=== PATIENT | male | born 1935 | race Caucasian/White ===

== ENCOUNTER 2021-03-26 03:01 | Inpatient (IN) | payer MEDICARE, OTHER, SELFPAY ==
[2021-03-26] VITALS (60 sets, daily range): BP systolic 102–184; BP diastolic 73–153; PULSE 53–119; RESP 10–34; TEMP 36.4–36.8; O2SAT 91–99; BMI 29.9
--- NOTE | 2021-03-26 03:03 | W.ED.CHESTPA ---
HPI - Chest Pain General: Chief Complaint: Chest Pain Stated Complaint: cp Time Seen by Provider: 03/26/21 03:03 Limitations: altered mental status (Dementia) History of Present Illness: HPI narrative: Mr. Lamas is an 85-year-old gentleman with history of hypertension, CAD, dementia and history of prior PCI who presents emergency department due to chest pain. The patient does not provide significant meaningful history and nearly all history is presented from his . Reportedly he woke up about 4 hours prior to arrival complaining of chest discomfort. The exact location, quality, exacerbating, provoking, alleviating, associated symptoms are unclear. History limited by mental status. Patient's denies recent other changes in health or frequent episodes of chest pain Review of Systems General: Reports: ROS unobtainable due to mental status [facility] ED PFSH: Medical History CAD (coronary artery disease) Hypertension Physical Exam Narrative: EXAM NARRATIVE: GENERAL/CONSTITUTIONAL -chronically ill-appearing. No acute distress. Eyes - PERRL, no conjunctival injection ENMT - Atraumatic external nose and ears. Moist mucous membranes NECK - supple. trachea midline CARDIOVASCULAR - regular rate and rhythm. Cap refill normal RESPIRATORY -clear to auscultation bilaterally. No retractions or accessory muscle use. ABDOMEN/GI - Nontender/Nondistended. MSK - Extremities without obvious deformity or tenderness to palpation SKIN - Warm, Dry NEURO - alert and disoriented. Moves all extremities equally. PSYCH -impaired cognition and memory Course ED course: - Patient was seen and evaluated by me at bedside - Patient placed on cardiac monitors, IV access obtained - Initial evaluation notable for limited history due to mental status. - Initial EKG reviewed. There are concerning abnormalities. Left bundle branch block present which limits interpretation, most concerning is lead V2 and I am concerned that this may meet scar Boso criteria however I am unable to completely determine where the bulk of QRS complex deflection is to say whether elevation is definitively concordant. I immediately had the unit aide tech contact interventional cardiology and after his review of the EKG he recommended repeat EKG and to let them know when troponin is back -Troponin elevated at 211, Repeat EKG completed as requested and sent to mogul operator. Discussed on telephone, STEMI activated at this time. - Labs notable for leukocytosis of unclear etiology, may be secondary to stress reaction. - Imaging notable for minimal patchy opacities of unclear significance - Patient taken to Supervisor Reinforced Steel Placing. - Patient was admitted without further deterioration or significant events. Vital Signs: Vital signs: Vital Signs Temperature 98.2 F 03/26/21 20:51 Pulse Rate 76 03/26/21 22:00 Respiratory Rate 23 H 03/26/21 22:00 Blood Pressure 184/153 03/26/21 22:00 Pulse Oximetry 94 03/26/21 22:00 MDM - Chest Pain Medical Records: Attestation: I reviewed the patient's medical records. Lab Data: Attestation: I reviewed the patient's lab results. Labs: Lab Results 03/26/21 03/26/21 03/26/21 03:15 03:15 03:15 WBC 13.3 10^3/uL H 10 ^3/uL (4.0-10.0) RBC 4.54 10^6/uL 10^6 /uL (4.1-5.3) Hgb 14.1 g/dL g/dL (11.7-16.6) Hct 41.9 % L % (42.0-52.0) MCV 92.3 fl fl (80-94) MCH 31.1 pg pg (28.0-34.0) MCHC 33.7 g/dL g/dL (30.0-36.0) RDW 13.2 % % (12.1-15.1) Plt Count 279 10^3/cmm 10^3 /cmm (130-400) MPV 9.0 fL fL (7.4-10.4) Neut % (Auto) 60.1 % % Lymph % (Auto) 26.5 % % [place] % (Auto) 7.6 % % Eos % (Auto) 4.7 % % Baso % (Auto) 0.7 % % Neut # (Auto) 8.03 10^3/uL H 10 ^3/uL (1.8-7.7) Lymph # (Auto) 3.5 10^3/uL 10^3/ uL (0.8-4.8) [place] # (Auto) 1.0 10^3/uL H 10^ 3/uL (0.2-0.9) Eos # (Auto) 0.6 10^3/uL 10^3/ uL (0.0-0.8) Baso # (Auto) 0.1 10^3/uL 10^3/ uL (0.0-0.1) Nucleated RBC % (a uto) 0 % % Nucleated RBCs # 0.0 /100WBC /100W BC Sodium 136 mmol/L mmol/L (136-145) Potassium 3.8 mmol/L mmol/L (3.5-5.1) Chloride 100 mmol/L mmol/L (98-107) Carbon Dioxide 23 mmol/L mmol/L (22-29) Anion Gap 16.8 (5-19) BUN 20 mg/dL mg/dL (8-23) Creatinine 1.2 mg/dL mg/dL (0.7-1.2) GFR Calculation Not Reportable Glucose 101 mg/dL mg/dL (65-115) Calculated Osmolal ity 285 mOsm/kg mOsm/ kg (285-295) Calcium 8.9 mg/dL mg/dL (8.5-10.5) Total Bilirubin 0.3 mg/dL mg/dL (0.15-1.2) AST 31 U/L U/L (0-40) ALT 19 U/L U/L (0-41) Alkaline Phosphata se 75 IU/L IU/L (40-130) Troponin T Baselin e Cancelled NT-Pro-B Natriuret Pep 151 pg/mL pg/mL (0-450) Total Protein 6.8 g/dL g/dL (6.6-8.7) Albumin 4.0 g/dL g/dL (3.5-5.2) Globulin 2.8 g/dL g/dL (1.3-4.6) Lipase 64 U/L H U/L (13-60) EKG Data^: EKG 1: Attestation: I personally reviewed and interpreted this EKG as follows: EKG interpretation date: 03/26/21 EKG interpretation time: 03:10 Interpretation: Twelve-lead EKG shows a regular rhythm rhythm at a rate of 71. SC interval 172, QRS duration 143, QTc 443 Left axis deviation Interpretation: Sinus rhythm. Left bundle branch block. See discussion regarding sgarbossa criteria application and ED course. Sent to ortho/prosthetic aide for review EKG 2: Attestation: I personally reviewed and interpreted this EKG as follows: EKG interpretation date: 03/26/21 EKG interpretation time: 03:58 Interpretation: Twelve-lead EKG shows a regular rhythm at a rate of 68 SC interval 104, QRS duration 150, QTc 436 Left axis deviation Interpretation: Sinus rhythm. Left bundle branch block. Similar to prior Discharge Plan Discharge Patient Disposition: Admitted As Inpatient Admit Provider: Hilario Santos Coding Level of Care Code ED Tufting Supervisor for Pelon Yin
--- NOTE | 2021-03-26 03:14 | XRR_ITS ---
PROCEDURE INFORMATION: Exam: XR Chest Exam date and time: 03/26/2021 3:14 AM Age: 85 years old Clinical indication: Chest pressure; Prior surgery; Surgery type: Cardiac stent; Patient HX: C/O chest pain. Possible st elevation on ekg. TECHNIQUE: Imaging protocol: XR of the chest. Views: 1 view. COMPARISON: CR Chest 1 [place] [id number] 08/26/2018 2:38 PM FINDINGS: Lungs: Minimal patchy opacities noted at the left lung base which may be seen with pneumonia or atelectasis. Pleural spaces: Unremarkable. No pleural effusion. No pneumothorax. Heart/Mediastinum: No cardiomegaly. Bones/joints: No acute fracture. XR/XR chest 1V portable [id number] IMPRESSION: Minimal patchy opacities noted at the left lung base which may be seen with pneumonia or atelectasis. Radiation Dose CTDIVOL = (mGy): DLP = (mGy-cm)
--- NOTE | 2021-03-26 03:14 | ECG_ITS ---
[facility] Test Date: 2021-03-26 Pat Name: Chinmay Lamas Department: Room: ICU11 Gender: Male Mononitrotoluene Operator: : 1935 Requested By: Jose Dallas Order Number: [id number] Hakeem MD: Sangeeta Naranjo M.D. Measurements Intervals [place] Rate: 71 P: 7 VT: 172 QRS: -71 QRSD: 143 T: 87 QT: 407 QTc: 443 Interpretive Statements SINUS RHYTHM INTRAVENTRICULAR CONDUCTION DELAY [130+ ms QRS DURATION] SEPTAL MYOCARDIAL INFARCTION , POSSIBLY ACUTE [40+ ms Q WAVE IN V1/V2] ACUTE VA Compared to ECG 08/26/2018 13:00:27 Myocardial infarct finding now present Electronically Signed On 03-27-2021 5:45:56 CDT by Sangeeta Naranjo M.D. [id number] f
[2021-03-26 03:20] LABS: Basophils # 0.1 10^3/uL (0.0-0.1); Basophils % 0.7 %; Eosinophils # 0.6 10^3/uL (0.0-0.8); Eosinophils % 4.7 %; Hematocrit 41.9 % (42.0-52.0); Hemoglobin 14.1 g/dL (11.7-16.6); Lymphocytes # 3.5 10^3/uL (0.8-4.8); Lymphocytes % 26.5 %; Mean Corpuscular HGB Conc 33.7 g/dL (30.0-36.0); Mean Corpuscular Hemoglobin 31.1 pg (28.0-34.0); Mean Corpuscular Volume 92.3 fl (80-94); Monocytes % 7.6 %; Neutrophils # 8.03 10^3/uL (1.8-7.7); Neutrophils % 60.1 %; Nucleated Red Blood Cells % 0 %; Platelet Count 279 10^3/cmm (130-400); Red Blood Count 4.54 10^6/uL (4.1-5.3); Red Cell Distribution Width 13.2 % (12.1-15.1); White Blood Count 13.3 10^3/uL (4.0-10.0)
[2021-03-26] MEDS: aspirin 81 mg Chew Tablet 324 MG PO (03:25)
[2021-03-26 03:45] LABS: Alanine Aminotransferase 19 U/L (0-41); Alkaline Phosphatase 75 IU/L (40-130); Anion Gap 16.8 (5-19); Aspartate Amino Transferase 31 U/L (0-40); Blood Urea Nitrogen 20 mg/dL (8-23); Calcium 8.9 mg/dL (8.5-10.5); Carbon Dioxide 23 mmol/L (22-29); Chloride 100 mmol/L (98-107); Globulin 2.8 g/dL (1.3-4.6); Glucose 101 mg/dL (65-115); Lipase 64 U/L (13-60); NT Pro B Type Natriuretic Pept 151 pg/mL (0-450); Osmolality Calculated 285 mOsm/kg (285-295); Potassium 3.8 mmol/L (3.5-5.1); Sodium 136 mmol/L (136-145); Total Bilirubin 0.3 mg/dL (0.15-1.2); Total Protein 6.8 g/dL (6.6-8.7)
--- NOTE | 2021-03-26 03:46 | ECG_ITS ---
[facility] Test Date: 2021-03-26 Pat Name: Chinmay Lamas Department: Room: Gender: Male Automotive Fleet Supervisor: : 1935 Requested By: Jose Dallas Order Number: [id number] Hakeem MD: Sangeeta Naranjo M.D. Measurements Intervals [place] Rate: 68 P: 210 DC: 104 QRS: -69 QRSD: 150 T: 86 QT: 409 QTc: 436 Interpretive Statements ECTOPIC ATRIAL RHYTHM WITH SHORT DC INTERVAL INTRAVENTRICULAR CONDUCTION DELAY [130+ ms QRS DURATION] SEPTAL MYOCARDIAL INFARCTION , POSSIBLY ACUTE [40+ ms Q WAVE IN V1/V2] ACUTE NE Compared to ECG 08/26/2018 13:00:27 Ectopic atrial rhythm now present Short DC interval now present Myocardial infarct finding now present Sinus rhythm no longer present Electronically Signed On 03-27-2021 5:45:35 CDT by Sangeeta Naranjo M.D. [id number]
[2021-03-26] MEDS: sodium chloride 0.9% 500 ML 999 ML IV (04:17)
[2021-03-26] MEDS: sodium chloride 0.9% 1,000 ML 999 ML IV (04:17)
[2021-03-26] MEDS: heparin 5,000 unit/mL INJ 1 mL 4000 UNIT IVP (04:20)
[2021-03-26] MEDS: ticagrelor 90 mg Tablet 180 MG PO (04:35)
--- NOTE | 2021-03-26 04:35 | XACV_ITS ---
Gender: Male : 1935 Exam Priority: Routine Procedure(s): Procedure Description: Diagnostic procedure Procedure Description: Left Heart Catheterization Procedure Description: Balloon angioplasty Diagnostic Cath Status: Emergency Diagnostic Findings * Left Main has 30% stenosis. * Circumflex has diffuse disease. It gives rise to an OM branch that has severe 90% stenosis. * INDICATION: 85 Year old man with severe dementia who had been having on and off atypical chest pain symptoms for 3-4 days was found to have ST elevations in leads V 1 and V 2. Secondary to his dementia, he could not communicate any clear symptoms.. * Mid Left Anterior Descending: total occlusion, MARY ANN: 0 flow. * Proximal Right Coronary Artery: moderate 50% stenosis, MARY ANN: 3 flow. * Distal Right Coronary Artery: obstructive 60% stenosis, MARY ANN: 3 flow. * First Obtuse Marginal Branch Segment: severe 90% stenosis, MARY ANN: 3 flow. * Coronary angiography shows right dominance. PCI Status: Emergency PCI Indication: STEMI - Stable (> 12 hrs Sx) Interventional Findings * Procedure detail: We engaged left main artery with XB 4.0 guide catheter. A 0.014 run-through guidewire was used to cross the mid LAD stenosis. It was a heavily calcified and small caliber distal vessel. 2.5 x 8 mm semicompliant balloon was used to perform balloon angioplasty. This restored blood flow temporarily. It did not appear to be acutely occluded vessel and acted more like subacute/chronic occlusion. Blood flow was lost again. Given patient's dementia because of which patient was very agitated during the procedure and he could not follow any commands, very small size of the distal artery,severe calcification and lack of patient symptoms along with hemodynamic stability, we decided to medically treat him. Final angiogram also revealed possible wire dissection.. * Mid Left Anterior Descendin% stenosis treated with a AB TREK 2.50X8 RX BALLOON. 0% residual stenosis, MARY ANN: 3 flow. Conclusions 1. Severe multivessel coronary artery disease. 2. Totally occluded mid LAD status post balloon angioplasty. Temporary catholic of flow however unsuccessful attempt at revascularization. Small sized, heavily calcified distal LAD artery. Recommendations * Patient was very agitated during the procedure. He does not follow any commands secondary to his dementia. Could not lay still. As he was chest pain-free, hemodynamically stable, his artery was not amenable to revascularization and delayed presentation of CA, we decided to medically treat him. Further attempts at revascularization were aborted. * Aspirin and Plavix for at least 1 year. * Transfer to ICU. * Order echocardiogram. * High intensity statin therapy and beta-declan. Interventional RX Recommendation: medical therapy and/or counseling Diagnostic RX Recommendation: PCI w/o planned CABG Anticoagulation: Heparin Clinical Evaluation EBL: 5mL-10mL Procedural Details Admit Source: Emergency department. Pre-Procedure Time Out. Identified patient by full name and date of as verbalized by the patient/guarantor. Does the consent match the physician's order: N/A Emergent. Accurate & Complete Informed Consent: N/A Emergent. Inpatient/Outpatient History & Physical on Chart: N/A Emergent. If H&P is completed, is and addenduem needed: N/A Emergent; If yes, is the addendum complete: N/A Emergent. Pre-op teaching completed and patient verbalized understanding. The risks, benefits, and alternatives of sedation and/or procedure were discussed by physician. The patient agrees to continue. Procedure started. Correct patient, site and procedure confirmed by cath team. Current diagnosis: STEMI. PERRLA. Strong, equal hand machine tool technician instructor bilaterally. Lungs clear x 5 lobes. IV Site on Arrival: 18 gauge in the right anticubital. IV Site on Arrival: 18 gauge in the left anticubital. IV Fluids: 0.9% NaCl at KVO. 1 liter infused prior to blender laborer. Oxygen started at 2liters/min via nasal canula. bilateral groins was prepped with chloroprep then draped in the usual sterile fashion. Physician notified. Physician arrived. Physician scrubbed in. Immediate Pre-Procedure Time Out. Correct Patient: N/A Emergent; Correct Procedure: N/A Emergent; Correct Site: N/A Emergent; Correct Patient Position: N/A Emergent; Correct Supplies: N/A Emergent; Dried Flammable Prep: N/A Emergent; Blood Products Available: N/A Emergent;. Lidocaine 1% infiltrated to the right groin. Arterial access obtained. Arterial access obtained with micropuncture set. A 5 chinese JL4 catheter in over wire. Baseline sample Acquired. HR: 72 BPM. Multiple views taken of left coronary artery. Catheter out. 6 chinese XB 3.5 guide catheter was inserted over the wire. Guide catheter removed. 6 chinese XB 4 guide catheter was inserted over the wire. Runthrough guidewire was advanced through the guide catheter to lesion in the mid LAD. Balloon inserted to lesion in the mid LAD. Inflation number : 1 A AB TREK 2.50X8 RX BALLOON was prepped and advanced across the Mid LAD , then inflated to 8 DAWN for 0:20 seconds. Inflation number: 2 The AB TREK 2.50X8 RX BALLOON was reinflated across the Mid LAD, to 8 DAWN for 0:10 seconds. Results checked. Balloon out. Wire out. Guide catheter out. 6 chinese JR 4 guide catheter was inserted over the wire. Guide catheter out. 6 chinese XB 4 guide catheter was inserted over the wire. Auditing Specialist guide wire inserted into the MID LAD. Auditing Specialist guide wire removed. 6 chinese JL 4.5 guide catheter was inserted over the wire. Auditing Specialist 50 guide wire reinserted. guide wire removed. 6 chinese XB 4 guide catheter was inserted over the wire. Auditing Specialist 50 reinserted into mid LAD. Inflation number: 4 The AB TREK 2.50X8 RX BALLOON was reinflated across the Mid LAD, to 10 DAWN for 0:19 seconds. Balloon out. Results checked. Wire out. Guide catheter out. Groin shot through the sheath. Angioseal placed without complications. No signs or symptoms of hematoma noted. Sterile dressing applied per usual sterile fashion. Lidocaine 1% infiltrated to the right groin. A Angio-Seal VIP ([place]) was successful obtaining hemostatsis at the Right Femoral artery insertion site. Fluoro: 25:06. Physician scrubbed out. Family updated. Total IV fluids: 100 mL. Complications: N/A. Estimated blood loss: 5mL-10mL. Procedure completed. Medication's Wasted: Lidocaine 1% = 15 mL. Medication's Wasted: Heparin = 4000 units. Medication's Wasted: Versed = 1 mL. Medication's Wasted: Fentanyl = 25 mcg. Post-op diagnosis: NSTEMI. Patient transferred by bed to ICU. [facility] Clinical Fraility Score: 8: Very Severely Frail. Manager Research Indications: ACS > 24 hours. Chest Pain Symptom Assessment: Atypical Angina. Cardiovascular Instability: No. Vital chart was stopped. Access Site Site: Right Femoral artery Sheath Size: 6 Fr Hemostasis Method: Angio-Seal VIP (St. Julio) Hemostasis Success: Successful Procedure Medications Start: 4:57 AM Stop: 4:57 AM Medication: Versed Amount: 1 mg Route: I.V. Start: 4:57 AM Stop: 4:57 AM Medication: Fentanyl Amount: 25 mcg Route: I.V. Start: 5:02 AM Stop: 5:02 AM Medication: Versed Amount: 1 mg Route: I.V. Start: 5:11 AM Stop: 5:11 AM Medication: Heparin Amount: 6000 units Route: I.V. Start: 5:21 AM Stop: 5:21 AM Medication: Versed Amount: 1 mg Route: I.V. Start: 5:36 AM Stop: 5:36 AM Medication: Fentanyl Amount: 25 mcg Route: I.V. Start: 5:38 AM Stop: 5:38 AM Medication: Versed Amount: 1 mg Route: I.V. Start: 5:48 AM Stop: 5:48 AM Medication: Heparin Amount: 06785 units Route: I.V. Start: 5:53 AM Stop: 5:53 AM Medication: Versed Amount: 1 mg Route: I.V. Start: 5:53 AM Stop: 5:53 AM Medication: Fentanyl Amount: 25 mcg Route: I.V. I, the attending physician, have reviewed and verified all procedure medications. Yes, all medications given per verbal order History/Risk Factors Hypertension: No Dyslipidemia: No Peripheral Arterial Disease (PAD): No Myocardial Infarction (CA): No Obesity: No Renal Disease: No Prior Interventions PCI: No CABG: No Valve Surgery: No Report Signatures Finalized by Hilario Santos MD on 04/09/2021 05:57 PM
--- NOTE | 2021-03-26 04:40 | P.HP_ITS ---
Providers/Chief Complaint Admitting Physician: Hilario Santos MD Chief Complaint: cp History of Present Illness Chinmay Lamas is a 85 year old male with PMH of dementia, hypertension and coronary artery disease with prior PCIs done in the past presented with on and off heart burn and chest pressure has been going on for the last 3 to 4 days. Worsened at about 7 PM yesterday. He gives very limited history secondary to dementia and denies chest pain but his says that he generally does not have any complaints but last few days have been different. EKG has interventricular conduction delay with borderline ST elevations in leads V 1 and V2. Said chest pain is almost resolved but still feels it on and off. Repeat ekg showed persist ent findings and initial troponin came back at 211. laborer tan house was activated. Coronary angiogram showed occluded mid LAD with heavily calcified and diffusely diseased distal vessel. Balloon angioplasty restored blood flow temporarily but it was occluded again. Reattmept at revascularization was unsuccessful with possible dissection of the vessel Review of Systems General: Reports: ROS unobtainable due to mental status Medications/Allergies Allergies Allergy/AdvReac Type Severity Reaction Status Date / Time clopidogrel [From Plavix] Allergy ALGY-Rash Verified 03/26/21 04:09 PFSH Acute PFSH: Medical History CAD (coronary artery disease) Hypertension Vitals/I&O/Wt Last Vital Signs Temp 97.9 F 03/26/21 03:08 Pulse 71 03/26/21 03:08 Resp 18 03/26/21 03:08 BP 162/87 03/26/21 03:08 Pulse Ox 95 03/26/21 03:08 Weight last 48 hrs Weight 180 lb Physical Exam Narrative: EXAM NARRATIVE: GENERAL: Patient is drowsy and not oriented NECK: No jugular vein distension. [] HEENT: No cyanosis. No icterus. No pallor. [] HEART: Regular S1 and S2. No murmur, rub or gallop. [] LUNGS: Clear to auscultate bilaterally. [] ABDOMEN:Soft CENTRAL NERVOUS SYSTEM: Grossly nonfocal. [] EXTREMITIES: Lower extremities with 1+ edema bilaterally. Pulses palpable in the lower extremities, both dorsalis pedis and posterior tibial. [] Data : 03/26/21 03:15 03/26/21 03:15 A&P Assessment and plan (1) Hypertension: Status: Acute (2) Dementia: Status: Acute (3) CAD (coronary artery disease): Status: Acute (4) NSTEMI (non-ST elevated myocardial infarction): Status: Acute Patient delayed presentation of [place] with resolution of chest pain at time of my evaluation in the ER. He had been having symptoms for the last 3-4 days but could not communicate to family. Coronary angiogram demonstrated occluded mid LAD. Temporary zoroastrianism of blood flow was obtained after balloon angioplasty however distal vessel is small in size and severely calcified. PCI could not be performed. Possible dissection of the vessel distally. Given patient's hemodynamic stability and resolution of chest pain, we decided to treat medically. Continue aspirin and Brilinta Start atorvastatin Order echocardiogram Transfer to ICU for now. If he develops chest discomfort, we will start on nitro drip. Attestations Medical Necessity Statement*: Care expected to cross 2 midnights. Patient presented with chest pain and EKG changes concerning for ischemia. Getting medi marcus therapy for [place]. Coding Level of Care Code Acute School Supervisor for [facility] Fwd Diagnoses Hypertension I10 Dementia F03.90 CAD (coronary artery disease) I25.10 NSTEMI (non-ST elevated myocardial infarction) I21.4
--- NOTE | 2021-03-26 06:26 | USCV_ITS ---
[place] Age: 85 Gender: M : 1935 Exam Date: 03/26/2021 11:38 Ordering Phys: Hilario Santos M.D ([email or web address]) Technologist: [place]am [place] [facility] [place]ication: mi BP: 166 / 93 HR: 56 Rhythm: Sinus Technical Quality: Technically difficult study MEASUREMENTS (Male / Female) Normal Values 2D ECHO LVOT Diameter 2.0 cm LV Ejection Fraction MOD 2C 46.7 % LV Ejection Fraction 2C AL 43.9 % LA Diameter 3.6 cm LA Width 4.6 cm LA Height 5.0 cm RA Width 3.9 cm RA Height 3.1 cm DOPPLER AV Peak Velocity 125.0 cm/s LVOT Peak Velocity 86.0 cm/s AV Area Cont Eq vti 2.9 cm squared AV Area Cont Eq pk 2.2 cm squared MV Area PHT 5.0 cm squared Mitral E to A Ratio 0.5 MV E' Velocity 27.0 cm/s Mitral E to MV E' Ratio 7.2 Mitral E to LV E' Lateral Ratio 5.5 Mitral E to LV E' Septal Ratio 10.3 TR Peak Velocity 159.0 cm/s TR Peak Gradient 10.1 mmHg Right Atrial Pressure 3.0 mmHg Pulmonary Artery Systolic Pressu 13.1 mmHg FINDINGS Left Ventricle Technically very difficult study. Grossly LV systolic function is moderate to severely reduced with EF of 30 to 35%. Regional wall motion abnormalities not accurately assessed however apical wall appears to be akinetic. Grade 1 diastolic dysfunction is seen. Right Ventricle The right ventricle is normal in size and function. Right Atrium Grossly normal Left Atrium Grossly normal Mitral Valve Not well-visualized Aortic Valve Not well-visualized Tricuspid Valve Not well-visualized Pulmonic Valve Not visualized Pericardium Grossly normal Aorta Not well-visualized CONCLUSIONS This is technically limited quality echocardiogram because of poor ultrasonic windows. Grossly LV systolic function is moderate to severely reduced with EF of 30 to 35%. Regional wall motion abnormalities cannot be accurately assessed because of poor quality images however apical wall appears to be akinetic. Grade 1 diastolic dysfunction is seen. Valvular structures are not well visualized No comparison studies are seen Hilario Santos MD (Electronically Signed) Final Date: 28 March 2021 21:47 S
[2021-03-26] MEDS: nitroglycerin drip 50 MG/250 ML PREMIX IV (08:06)
[2021-03-26] MEDS: metoprolol tartrate 25 mg Tablet PO ×2 (08:24→20:07)
[2021-03-26] MEDS: amlodipine 5 mg Tablet PO (09:13)
--- NOTE | 2021-03-26 09:13 | PC.CHAP ---
Pastoral Care Encounter/Spiritual Assessment Type of Contact [] Declined content writer visit [] Patient/Family/Request visit [] Outpatient visit [] Follow-up visit [] Physician referral [] Code/Alert [x] Routine visit [] Staff referral [] Actively dying [] Patient sleeping [x] Family support [] [] Out of room [] Palliative care [] [x] Receiving care in room [] Pre-surgical visit [] Trauma [] Long length of stay [x] ICU visit [x] Other: staff having difficult time getting patient to relax Relational/Emotional Strength [] Patient feels connected with others/family/visitors/staff [] Distress [] Loneliness/isolation [] Abandonment Spirituality of Patient [] Person of Cece [] Attends Confucianism of their Cece [] Believes in Prayer [] Reads Bible or Worship materials [] There are Spiritual issues to be addressed Gravel Screener Interventions [x] Prayer [] Active listening [] Non-anxious presence [] Spiritual/emotional support [] Crisis/trauma care [] Spiritual counseling [] Bereavement support [] Provided bereavement packet [] Provided Bible/devotional materials [] Provided toy/stuffed animal, coloring book to patient or family member [] Provided Communion [] Anointing/[place] [] Salvation [x] Completed spiritual assessment [] Other: Impact on Illness or Injury [] Angry [] Fearful [] Anxious [] Often cries [] Exhaustion [] Unable to work [] Unable to attend faith [] Unable to walk/stand [] Unable to read [] Unable to drive [] Unable to eat/drink [] Unable to sleep [] Unable to be with family [] Patient intubated [] Other: Summary Time spent with patient
--- NOTE | 2021-03-26 09:14 | ECG_ITS ---
[facility] Test Date: 2021-03-26 Pat Name: Chinmay Lamas Department: Room: ICU11 Gender: Male Sole Trimmer: : 1935 Requested By: Jose Dallas Order Number: [id number] Hakeem MD: Sangeeta Naranjo M.D. Measurements Intervals [place] Rate: 54 P: 17 OK: 181 QRS: -71 QRSD: 137 T: 90 QT: 476 QTc: 452 Interpretive Statements SINUS BRADYCARDIA INTRAVENTRICULAR CONDUCTION DELAY [130+ ms QRS DURATION] SEPTAL MYOCARDIAL INFARCTION , PROBABLY RECENT ACUTE MO Compared to ECG 03/26/2021 03:57:21 Ectopic atrial rhythm no longer present Short OK interval no longer present Myocardial infarct finding still present Electronically Signed On 03-27-2021 5:51:17 CDT by Sangeeta Naranjo M.D. [id number]
--- NOTE | 2021-03-26 09:36 | PC.NURSE ---
Patient was admitted to ICU this AM. Family at bedside and answered all questions. Right groin dressing dry and intact. No hematoma noted. Patient is yelling out at, hitting and pinching staff. Leg brace was applied to right leg in attempt to keep patient from bending knee due to increased infusion. at bedside aware and agreed to intervention.
[2021-03-26] MEDS: ALPRAZolam 0.5 mg Tablet 0.25 MG PO ×2 (12:34→17:41)
--- NOTE | 2021-03-26 15:04 | PC.NURSE ---
Patient continues to pull at wires and leads making it difficult to obtain vitals correctly. PRN medication given and at bedside.
[2021-03-26 20:01] LABS: Basophils # 0.1 10^3/uL (0.0-0.1); Basophils % 0.3 %; Eosinophils # 0.1 10^3/uL (0.0-0.8); Eosinophils % 0.4 %; Hematocrit 42.1 % (42.0-52.0); Hemoglobin 14.3 g/dL (11.7-16.6); Lymphocytes # 1.8 10^3/uL (0.8-4.8); Lymphocytes % 10.5 %; Mean Corpuscular Hemoglobin 31.2 pg (28.0-34.0); Mean Corpuscular Volume 91.7 fl (80-94); Mean Platelet Volume 9.4 fL (7.4-10.4); Monocytes # 1.5 10^3/uL (0.2-0.9); Monocytes % 8.9 %; Neutrophils # 13.33 10^3/uL (1.8-7.7); Neutrophils % 79.4 %; Nucleated Red Blood Cells % 0 %; Platelet Count 293 10^3/cmm (130-400); Red Blood Count 4.59 10^6/uL (4.1-5.3); Red Cell Distribution Width 13.2 % (12.1-15.1); White Blood Count 16.8 10^3/uL (4.0-10.0)
[2021-03-26] MEDS: acetaminophen 325 mg Tablet 650 MG PO (20:07)
[2021-03-26] MEDS: temazepam 15 mg Capsule PO (20:07)
--- NOTE | 2021-03-26 21:12 | PC.NURSE ---
Bruising noted to right groin area. aware
[2021-03-26 23:05] LABS: Glucose Point of Care 119 mg/dL (70-110)
--- NOTE | 2021-03-26 23:25 | PM.MISC ---
Miscellaneous Note Purpose of Documentation: Brief note Note: 85-year-old man with severe dementia and limited mobility had presented this morning with 3 to 4 days of symptoms of heartburn. EKG showed evolving changes with borderline ST elevation noted in V1 and V2. It was consistent with delayed presentation of PR. After discussion with family it was decided to perform a coronary angiogram. He had mid LAD occlusion. It was subacute. Heavily calcified and small in size vessel distally. Flow was restored temporarily with balloon angioplasty however reocclusion occurred. Further attempts at revascularization were not successful. Given his overall clinical and hemodynamic stability, no complaints of chest pain, no further ST changes and his inability to lay and agitation during the procedure because of dementia we decided to medically manage him. He appeared to have completed infarction given lack of active chest pain and duration of his symptoms. It was discussed with the family who agreed. He stayed stable through the day clinically. Not cooperative with getting vitals because of his significant dementia. Received a call that he went into ventricular tachycardia tonight at 1048 PM. Likely infarct related ventricular tachycardia. After 20 minutes of resuscitation attempt, family decided to stop further CPR.
--- NOTE | 2021-03-26 23:41 | PC.NURSE ---
Addendum entered by Thalia Springer RN 03/26/21 23:58: Agree with note written by SN Jeison Original Note: 2215 - Entered patient room. Patient was restless needing to void. Assisted patient to use urinal and patient became increasingly agitated. woke up to assist patient, agonal breathing noted, patient became bradycardic on spring coverer, blood pressure elevated. 2241 - Asystole noted on spring coverer with agonal respirations, CPR started and code called. See code sheet for further detailed code documentation.
--- NOTE | 2021-03-26 23:42 | P.DES_ITS ---
Discharge Providers DDS Date of Admission: 03/26/21 06:20 Date Summary Completed: 03/26/21 Attending Provider at Admission: Hilario Santos M.D Time of : 22:59 Attending Provider at Discharge: Hilario Santos M.D Primary Care Provider: Dennis RAMOS Diagnoses Hospital Diagnoses (1) Hypertension: (2) Dementia: (3) CAD (coronary artery disease): (4) NSTEMI (non-ST elevated myocardial infarction): Reason for Visit Reason for Visit: cp Summary Date and Time of Date of : 03/26/21 Time of : 22:59 Summary Summary: 85 year old male with PMH of dementia, hypertension and coronary artery disease with prior PCIs done in the past presented with on and off heart burn and chest pressure has been going on for the last 3 to 4 days. Worsened at about 7 PM yesterday. He gives very limited history secondary to dementia and denies chest pain but his says that he generally does not have any complaints but last few days have been different. EKG has interventricular conduction delay with borderline ST elevations in leads V 1 and V2. Said chest pain is almost resolved but still feels it on and off. Repeat ekg showed persistent findings and initial troponin came back at 211. hoisting laborer was activated. Coronary angiogram showed occluded mid LAD with heavily calcified and diffusely diseased distal vessel. Balloon angioplasty restored blood flow temporarily but it was occluded again. Reattmept at revascularization was unsuccessful with possible dissection of the vessel. Patient was transferred to intensive care unit. On 03/26/2021 patient was noted to have agonal respirations and on telemetry progressed to asystole. Code blue was called and CPR was initiated. Multiple rounds of ACLS meds were given without success will return of spontaneous circulation.Patients had presented to the hospital at this time during code blue. She stated that this would not be his which and to terminate resuscitation efforts. CPR was terminated and patient on 03/26/2021 at 10:59 p.m.. Additional Data Confirmation of as documented by pronouncing clinician: no pulse Family: at bedside Additional persons at bedside: nursing staff Attending/PCP notified?: Attending notified (Dr. 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
--- NOTE | 2021-03-28 04:15 | PM.CCN ---
Critical Care Event Note Critical Care Event I responded to overhead CODE BLUE announcement to the ICU and found CPR in progress. Reportedly initial rhythm was ventricular and pulseless. Patient had received 1 round of epinephrine. I performed actions as steam plant records clerk until arrival of Dr. Saavedra who took over as steam plant records clerk. I personally interpreted pulseless telemetry and instructed care using ACLS guidelines. I intubated the patient as noted in procedure note, copious secretions and gastric contents were present in the hypopharynx and oropharynx. Critical Care Time Critical Care Time: Code activated: Yes Critical Care Time (min): 15 Procedures Intubation Time out performed: No (Performed emergently) Laryngoscope: other ([place] scope) ET tube size: 8 Tube secured location: teeth Tube placement confirmation: visualized tube passing through cords, equal breath sounds bilaterally and color change noted Intubation complications: difficult intubation (Gross contamination of oropharynx and hypopharynx) Additional comments: Performed emergently in the context of cardiac arrest. 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
== END 2021-03-27 01:35 | disposition expired | DRG 251 ==
LOC: ER 05:01 → ICU 06:31
PROVIDERS: Admitting Provider Internal Medicine; Emergency Provider Emergency Medicine; PCP Physician Assistant Medical; Visit Provider Internal Medicine
PROC: 02703ZZ Dilation of Coronary Artery, One Artery, Percutaneous Approach (ICD-10-PCS; principal; 2021-03-26 04:30)
PROC: 02703ZZ Dilation of Coronary Artery, One Artery, Percutaneous Approach (ICD-10-PCS; 2021-03-26 04:30)
DX: I21.4 Non-ST elevation (NSTEMI) myocardial infarction (principal); I47.2 Ventricular tachycardia; I97.88 Other intraoperative complications of the circulatory system, not elsewhere classified; Y71.0 Diagnostic and monitoring cardiovascular devices associated with adverse incidents; Y92.530 Ambulatory surgery center as the place of occurrence of the external cause; I46.2 Cardiac arrest due to underlying cardiac condition; F03.90 Unspecified dementia, unspecified severity, without behavioral disturbance, psychotic disturbance, mood disturbance, and anxiety; I10 Essential (primary) hypertension; I25.10 Atherosclerotic heart disease of native coronary artery without angina pectoris; Z95.5 Presence of coronary angioplasty implant and graft
CPT/HCPCS: 36416; 71045; 80053; 82962; 83690; 83880; 85025; 92920; 93005; 93306; 93454; 96361; 96374; 99285; C1725; C1760; C1769; C1887; C1894; J0153; J1644; J2001; J2250; J3010; J3475; J3490; J7030; J7040; Q9967